=== PATIENT | female | born 1970 | race African-American/Black ===

== ENCOUNTER 2019-06-01 00:19 | Emergency (ER) | payer MEDICAID ==
[~2019-06-01] VITALS: Ht 165.1 cm; Wt 69.0 kg
[2019-06-01] MEDS ORDERED: MAGNESIUM/ALUMINUM HYDROXIDE/SIMETHICONE 30ML UDC PO STA (02:26)
[2019-06-01] MEDS ORDERED: VISCOUS LIDOCAINE 2% 15 ML UDC PO STA (02:26)
[2019-06-01] MEDS ORDERED: ONDANSETRON 4MG ODT PO ONE (03:00)
[2019-06-01 03:30] LABS: BASOPHILS % 0.2 % (0.0-2.0); EOSINOPHILS % 1.1 % (0.0-5.0); HEMOGLOBIN. 11.9 g/dL (12.0-16.0); LYMPHOCYTES % 8.2 % (20.0-50.0); MEAN CORPUSCULAR HEMOGLOBIN 28.2 pg (28.0-32.0); MEAN CORPUSCULAR VOLUME 85.5 fL (81.0-99.0); MEAN PLATELET VOLUME 6.6 fl (7.4-10.4); MONOCYTES % 5.6 % (2.0-8.0); NEUTROPHILS % 84.9 % (40.0-76.0); PLATELET 228 x1000/uL (130-400); RED BLOOD CELL COUNT 4.21 mill/uL (4.2-5.4); RED CELL DISTRIBUTION WIDTH 13.1 % (11.6-14.6)
[2019-06-01 03:36] LABS: CHLORIDE 107 mEq/L (98-107); PROTHROMBIN TIME 10.7 sec (9.6-11.0)
[2019-06-01 12:12] VITALS: BP 128/72
== END 2019-06-01 12:23 | disposition home or self-care (01) ==
LOC: ER 00:19
DX: K59.00 Constipation, unspecified (principal); E11.9 Type 2 diabetes mellitus without complications; I10 Essential (primary) hypertension; E05.90 Thyrotoxicosis, unspecified without thyrotoxic crisis or storm; Z90.711 Acquired absence of uterus with remaining cervical stump
CPT/HCPCS: 36415; 80053; 83690; 85025; 85610; 93005; 99284; Q0162

== ENCOUNTER 2020-02-22 16:06 | Emergency (ER) | payer MEDICAID ==
[~2020-02-22] VITALS: Ht 172.7 cm; Wt 65.0 kg
[2020-02-22] MEDS ORDERED: LORAZEPAM 0.5MG TABLET PO ONE (16:30)
[2020-02-22 17:29] LABS: CLARITY URINE CLOUDY (CLEAR); COLOR URINE YELLOW (YELLOW); KETONES URINE NEGATIVE (NEGATIVE); LEUKOCYTE ESTERASE URINE 2+ (NEGATIVE); NITRITE URINE POSITIVE (NEGATIVE); OCCULT BLOOD URINE NEGATIVE (NEGATIVE); PROTEIN URINE NEGATIVE (NEGATIVE); SPECIFIC GRAVITY URINE 1.025 (1.005-1.030)
[2020-02-22 17:37] VITALS: BP 118/90
== END 2020-02-22 17:37 | disposition home or self-care (01) ==
LOC: ER 16:06
DX: F15.180 Other stimulant abuse with stimulant-induced anxiety disorder (principal); N39.0 Urinary tract infection, site not specified; I10 Essential (primary) hypertension; E11.9 Type 2 diabetes mellitus without complications; E03.9 Hypothyroidism, unspecified
CPT/HCPCS: 81003; 99283